=== PATIENT | female | born 2000 | race Two or more races ===

== ENCOUNTER 2025-05-15 07:26 | Emergency (ER) | payer MEDICAID, OTHER ==
[~2025-05-15] VITALS: Ht 165.1 cm; Wt 49.9 kg
[2025-05-15 08:01] VITALS: BP 108/70; TEMP 97.9; O2SAT 98
== END 2025-05-15 11:27 | disposition home or self-care (01) ==
LOC: ER 07:37
DX: R07.89 Other chest pain (principal); Y04.0XXA Assault by unarmed brawl or fight, initial encounter; Y93.89 Activity, other specified; Y92.89 Other specified places as the place of occurrence of the external cause; Y99.9 Unspecified external cause status
CPT/HCPCS: 71045-TC; 73630-TC